=== PATIENT | male | born 1955 | race African-American/Black ===

== ENCOUNTER 2016-06-08 00:18 | Emergency (ER) | payer OTHER ==
[~2016-06-08] VITALS: Ht 167.6 cm; Wt 74.9 kg
[~2016-06-08 00:18] MED LIST: CIPRO 500MG TA500 MG PO; FLEXERIL10 MG PO; FLOMAX(MONOGRA0.4 MG PO
--- NOTE | 2016-06-08 01:33 | ED GI/GU/ABDOMINAL COMPLAINT ---
History of Present Illness General Chief Complaint: Abdominal Pain/Flank Pain Stated Complaint: ABD PAIN X'S 2 WKS HX PROSTATE CA Source: patient Exam Limitations: no limitations Vital Signs & Intake/Output Vital Signs & Intake/Output Vital Signs Date Time Temp Pulse Resp B/P Pulse O2 O2 Flow FiO2 Ox Delivery Rate 06/08 0138 97.8 78 18 170/88 98 Room Air Allergies Coded Allergies: tramadol (09/19/15) Reconcile Medications Oxycodone HCl 5 MG CAPSULE 5 MG PO Q4 PRN PAIN (Reported) Tamsulosin Hydrochloride (Flomax) 0.4 MG CAP 1 TAB PO DAILY prostatits Triage Note: PT HAS HX PROSTATE CANCER, HAS NOT BEEN ABLE TO VOID SIBNCE THIS AFTERNOON Triage Nurses Notes Reviewed? yes HPI: Patient presents for evaluation of rectal pain lower abdominal pain and fullness and pain radiating down from the right buttock down through the right lower extremity. Patient states he had a similar pain in the left buttock and leg but that has resolved. Patient states his abdominal pain has been present for about 2 weeks and thought attributable to his history of metastatic prostate cancer. He does have bone involvement. He states the feeling becomes severe at times and feels like he has to use the bathroom. Past History Travel History Traveled to [place] past 21 day No Medical History Any Pertinent Medical History? 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 No Review of Systems Review of Systems Constitutional: Reports: no symptoms. EENTM: Reports: no symptoms. Respiratory: Reports: no symptoms. Cardiovascular: Reports: no symptoms. GI: Reports: abdominal pain. Genitourinary: Reports: no symptoms. Musculoskeletal: Reports: back pain. Skin: Reports: no symptoms. Neurological/Psychological: Reports: no symptoms. Hematologic/Endocrine: Reports: no symptoms. Immunologic/Allergic: Reports: no symptoms. All Other Systems: Reviewed and Negative Physical Exam Physical Exam Gastrointestinal: SEE BELOW Comments: Patient evaluated after he provided a urine specimen. Gen.: Well-nourished, well-developed, no acute respiratory distress. Head: Normocephalic, atraumatic. Eyes: Normal inspection bilaterally Ears: Normal inspection bilaterally Nose: Normal inspection Throat/mouth : Moist mucosa Neck: Supple, full range of motion, no goiter Heart: Regular rate and rhythm, no murmurs rubs or gallops Lungs: Clear to auscultation bilaterally with normal air entry Chest: Nontender Back: Normal range of motion Abdomen: Soft, mild suprapubic tenderness with what appears to be a palpable bladder, nondistended, normal bowel sounds Extremities: Normal range of motion grossly, equal radial pulses, no cyanosis clubbing or edema Neurologic: Cranial nerves grossly intact, speech is clear Skin: warm and dry Psychiatric: Calm, cooperative, no apparent delusions or hallucinations Core Measures ACS in differential dx? No Severe Sepsis Present: No Septic Shock Present: No Progress Differential Diagnosis: aCUTE URINARY RETENTION, SCIATICA, METASTATIC PROSTATE CANCER Plan of Care: Orders Procedure Date/time Status Straight Cath 06/08 0130 Active CULTURE,URINE 06/08 010 Active URINALYSIS 06/08 010 Complete Laboratory Tests 06/08/16 0106: Urine Color YEL, Urine Clarity CLEAR, Urine pH 6.0, Ur Specific [place] 1.020, Urine Protein NEG, Urine Ketones NEG, Urine Nitrite NEG, Urine Bilirubin NEG, Urine Urobilinogen 0.2, Ur Leukocyte Esterase NEG, Ur Microscopic EXAM NOT REQUIRED, Urine Hemoglobin NEG, Urine Glucose 500 H Microbiology 06/086 URINE ROUT: Urine Culture - RECD Initial ED EKG: none Comments: 06/08/2016 2:10:24 AM despite 2 spontaneous urine voids here in the emergency department, a straight catheter was performed which returned over 600 mL. 06/08/2016 3:59:40 AM Eric is feeling much better. His abdominal pain has resolved but now he is experiencing sciatic pain. He was seen by his primary care physician and prescribed oxycodone. This does not seem to be helping all that much but it appears that he has a prescription for ibuprofen that he has not been taking. I feel that he will feel much better with the combination of the 2 medications. Departure Departure Disposition: HOME OR SELF CARE Condition: Stable Clinical Impression Primary Impression: Acute urinary retention Secondary Impressions: Prostate cancer metastatic to bone Sciatica Qualifiers: Laterality: right Qualified Code: M54.31 - Sciatica, right side Referrals: TRICIA BRAR MD (PCP/Family) Additional Instructions: Continue your current pain medication but also take the prescription ibuprofen. Follow-up with Dr. Fernandes for reevaluation and removal of the Almazan catheter. Follow-up with your primary care doctor for reevaluation of the sciatica pain. Return if any concerns or sudden worsening. Thank you for choosing the [facility] Emergency Department for your care. It was a pleasure to serve you today. Beck Castro M.D. [facility] Departure Forms: Customer Survey General Discharge Information
[2016-06-08] MEDS ORDERED: OXYCODONE HCL5 M2 PO (01:50)
[2016-06-08 04:18] VITALS: BP 127/74
== END 2016-06-08 04:24 ==
LOC: ERH 00:18
DX: R33.9 Retention of urine, unspecified (principal); C25.9 Malignant neoplasm of pancreas, unspecified; C79.51 Secondary malignant neoplasm of bone
CPT/HCPCS: 81003; 87086

== ENCOUNTER 2016-09-25 18:57 | Emergency (ER) | payer OTHER ==
[~2016-09-25] VITALS: Ht 167.6 cm; Wt 82.6 kg
[~2016-09-25 18:57] MED LIST changes: +OXYCODONE HCL5 M2 PO
[2016-09-25] MEDS ORDERED: BICALUTAMIDE50 M1 PO (20:19)
[2016-09-25] MEDS ORDERED: TAMSULOSIN HCL0.4 M1 PO (20:19)
[2016-09-25] MEDS ORDERED: LIDOCAINE1 EACH TOP (20:20)
--- NOTE | 2016-09-25 21:44 | ED GI/GU/ABDOMINAL COMPLAINT ---
History of Present Illness General Chief Complaint: General Adult Stated Complaint: PT HAS MILLER BLOCK AND PAIN Source: patient, family Exam Limitations: no limitations Vital Signs & Intake/Output Vital Signs & Intake/Output Vital Signs Date Time Temp Pulse Resp B/P B/P Pulse O2 O2 Flow FiO2 Mean Ox Delivery Rate 09/25 2254 97.4 70 18 138/82 97 Room Air 09/25 1901 97.4 67 16 150/97 99 Room Air ED Intake and Output 09/26 0000 09/25 1200 Intake Total 0 Output Total Balance 0 Intake, Oral 0 Patient 182 lb Weight Weight Reported by Patient Measurement Method Allergies Coded Allergies: tramadol (VOMITING, PASSING OUT 09/25/16) Reconcile Medications Bicalutamide 50 MG TABLET 1 TAB PO DAILY PROSTATE (Reported) Ciprofloxacin HCl (Cipro) 500 MG TABLET 1 TAB PO BID UTI Lidocaine 5 % ADH..PATCH 1 PAT TOP PRN PAIN (Reported) Tamsulosin HCl 0.4 MG CAP.ER.24H 1 CAP PO BID /PROSTATE (Reported) Triage Note: PT FEELS LIKE HIS MILLER IS BLOCKED. PT STATES HE HAS PAIN IN HIS ABD ON AND OFF FOR THE PAST TWO DAYS. PT STATES HE DID NOTE SOME SEDAMENT IN HIS URINE THE PAST FEW DAYS. Triage Nurses Notes Reviewed? yes Onset: Abrupt Duration: hour(s): Timing: recent history Quality/Severity: moderate Location: suprapubic Radiation: no radiation Prior Abdominal Problems: similar symptoms No Modifying Factors: none HPI: 61-year-old male with history of prostate cancer and indwelling Miller catheter presents to emergency department complaining of obstructed Miller. Patient states that symptoms began about 24 hours ago. He states he noticed no urine falling, some suprapubic pain, cloudy urine. He sees urologist Dr. Shabazz every 1-2 months for Miller catheter changes. This Miller catheter has been present for about 1.5 weeks. He denies fevers, chills, nausea, vomiting, hematuria, diarrhea. (KRAIG ALMANZAR,WESLEY CARCAMO) Past History Travel History Traveled to [place] past 21 day No Medical History Any Pertinent Medical History? 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 No (WESLEY CORNELL PA-C) Review of Systems Review of Systems Constitutional: Reports: no symptoms. Comments Review of systems: See HPI, All other systems negative. Constitutional, no chills fever or weight loss HEENT: no sore throat no congestion Cardiovascular: No chest pain ,palpitation Skin, no jaundice no rashes Respiratory: No dyspnea cough sputum GI: No nausea no vomiting : +urinary retention +suprapubic pain +cloudy urine No hematuria Muscle skeletal: no back pain, no neck pain, Neurologic: No numbness no confusion Psych: No stress anxiety or depression,. Heme/endocrine: No bruising no bleeding no polyuria or polydipsia Immunology: No splenectomy or history of AIDS (WESLEY CORNELL PA-C) Physical Exam Physical Exam Gastrointestinal: normal bowel sounds, soft, suprapubic tenderness Comments: Well-developed well-nourished person in no acute distress HEENT: Normal EENT exam, extraocular motion intact, Nose is atraumatic. head is atraumatic, normocephalic Neck: Supple, normal range of motion without pain or tenderness Back: Nontender, no CVA tenderness. Full range of motion Cardiovascular: Regular rate and rhythms no murmurs rubs or gallops, normal JVP Respiratory: No respiratory distress.breath sounds clear to auscultation bilaterally Abdomen: Soft,+suprapubic tenderness nondistended, no appreciable organomegaly. Normal bowel sounds. No ascites : Normal gential exam, miller catheter present with cloudy yellow urine in bag Extremity: No edema, FROM Neuro: Alert oriented x3, motor sensory normal, no focal neurologic deficit Skin: No appreciable rash on exposed skin, skin is warm and dry. Psych: Mood and affect is normal, memory and judgment is normal. Core Measures ACS in differential dx? No Severe Sepsis Present: No Septic Shock Present: No (WESLEY CORNELL PA-C) Progress Differential Diagnosis: epididymitis, hernia, prostatitis, ureterolithiasis, urinary retention, urethritis, UTI/pyelo Plan of Care: Orders Procedure Date/time Status CULTURE,URINE 09/25 2100 Active URINALYSIS 09/25 2099 Complete Laboratory Tests 09/25/16 2205: Urinalysis MOD H, Urine Color YEL, Urine Clarity TURBD H, Urine pH 8.0, Ur Specific [place] 1.020, Urine Protein 100 H, Urine Ketones NEG, Urine Nitrite NEG, Urine Bilirubin NEG, Urine Urobilinogen 0.2, Ur Leukocyte Esterase LARGE H , Ur Microscopic SEDIMENT EXAMINED, Urine RBC 25-50 H, Urine WBC 25-50 H, Urine Bacteria MANY H, Urine Hemoglobin LARGE H, Urine Glucose NEG Microbiology 09/25 2204 URINE ROUT: Urine Culture - RECD Saline flush through Miller attempted with no relief of urine or pressure. 2199 - Miller catheter removed with thick cloudy mucousy urine present. New Miller catheter inserted successfully with flow of urine, relief of suprapubic pressure. Urinalysis pending. Patient discussed with Dr. Mejia. We'll treat with 10 days of Cipro for his urinary tract infection. The patient will follow up with his urologist, he will call tomorrow to make an appointment. The patient is stable, he is not complaining of any pain after Miller catheter change, he is in no acute distress, his vital signs remained stable for the duration of this visit, he is afebrile and nontoxic appearing. Patient is in agreement with the plan of care. (KRAIG ALMANZAR,WESLEY CARCAMO) Initial ED EKG: none (KRAIG ALMANZAR,WESLEY CARCAMO) Departure Departure Disposition: HOME OR SELF CARE Condition: Stable Clinical Impression Primary Impression: Obstructed Miller catheter Secondary Impressions: Urinary retention, Urinary tract infection Referrals: TRICIA BRAR MD (PCP/Family) Additional Instructions: Take full course of antibiotics. Follow-up with your urologist, call tomorrow to make an appointment and inform them that you were seen today and the results of today's visit. Return if any worsening symptoms or concerns. Departure Forms: Customer Survey General Discharge Information Prescriptions: Current Visit Scripts Ciprofloxacin HCl (Cipro) 1 TAB PO BID #20 TAB (KRAIG ALMANZAR,WESLEY CARCAMO) PA/VEHICLE MODIFICATION TECHNICIAN Co-Sign Statement Statement: ED Attending supervision documentation- [] I saw and evaluated the patient. I have also reviewed all the pertinent lab results and diagnostic results. I agree with the findings and the plan of care as documented in the RONALDs/VEHICLE MODIFICATION TECHNICIAN's documentation. [x] I have reviewed the ED Record and agree with the PA's/VEHICLE MODIFICATION TECHNICIAN's documentation. [] Additions or exceptions (if any) to the PAs/VEHICLE MODIFICATION TECHNICIAN's note and plan are summarized below: [] (SANDRO SMITH,DINO Castro)
[2016-09-25] MEDS ORDERED: CIPRO500 M1 PO (22:28)
[2016-09-25 22:54] VITALS: BP 138/82
== END 2016-09-25 22:57 ==
LOC: ERH 18:57
DX: T83.098A Other mechanical complication of other urinary catheter, initial encounter (principal); N39.0 Urinary tract infection, site not specified; R33.9 Retention of urine, unspecified
CPT/HCPCS: 81001; 87086